=== PATIENT | female | born 1960 | race African-American/Black ===

== ENCOUNTER 2017-01-04 15:25 | Emergency (ER) | payer MEDICAID ==
[~2017-01-04] VITALS: Ht 165.1 cm; Wt 97.1 kg
[2017-01-04 17:04] LABS: CALCIUM 8.7 mg/dL (8.5-10.1); CARBON DIOXIDE 33.8 mmol/L (21-32); CHLORIDE SERUM 106 mmol/L (98-107); GFR1 > 60 mL/min; GLUCOSE SERUM 84 mg/dL (74-106); POTASSIUM SERUM 3.5 mmol/L (3.5-5.1); SODIUM SERUM 145 mmol/L (136-145)
[2017-01-04 17:05] LABS: BASOPHIL % 0.4 % (0-2); PLATELET COUNT 290 x10^3mcL (130-400); RED CELL DISTRIBUTION WIDTH 13.5 % (11.5-14.5)
[2017-01-04 17:07] LABS: MAGNESIUM 1.9 mg/dL (1.8-2.4)
[2017-01-04 17:25] LABS: CK-MB 2.6 ng/mL (0-3.6)
[2017-01-04 19:28] VITALS: BP 142/76
== END 2017-01-04 19:28 | disposition home or self-care (01) ==
LOC: ED 15:25
PROVIDERS: Emergency Medicine
DX: J45.901 Unspecified asthma with (acute) exacerbation (principal)
CPT/HCPCS: 83880; J1100; J7613; J7644; Q0092

== ENCOUNTER 2017-04-18 18:05 | Emergency (ER) | payer MEDICAID ==
[2017-04-18 18:56] LABS: BASOPHIL % 0.4 % (0-2); PLATELET COUNT 245 x10^3mcL (130-400)
[2017-04-18 18:57] LABS: RED CELL DISTRIBUTION WIDTH 14.8 % (11.5-14.5)
[2017-04-18 19:05] LABS: CALCIUM 8.9 mg/dL (8.5-10.1); CARBON DIOXIDE 32.3 mmol/L (21-32); CHLORIDE SERUM 104 mmol/L (98-107); CREATININE SERUM 0.9 mg/dL (0.6-1.0); GFR1 > 60 mL/min; GLUCOSE SERUM 78 mg/dL (74-106); POTASSIUM SERUM 3.6 mmol/L (3.5-5.1); SODIUM SERUM 144 mmol/L (136-145)
[2017-04-18 19:09] LABS: ALBUMIN 3.5 g/dL (3.4-5.0); ALKALINE PHOSPHATASE 70 U/L (46-116); ALT/SGPT 25 U/L (14-59); AST/SGOT 14 U/L (15-37); BILIRUBIN TOTAL 0.57 mg/dL (0.20-1.00); TOTAL PROTEIN, SERUM 6.6 g/dL (6.4-8.2)
[2017-04-18] MEDS ORDERED: ALBUTEROL SULFAT0.51 NEB (20:27)
[2017-04-18] MEDS ORDERED: VENTOLIN H0.09 MG/A1 INH (20:27)
[2017-04-18] MEDS ORDERED: SYMBICORT1 AE3 INH (20:27)
[2017-04-18 21:10] VITALS: BP 157/60
[2017-04-18 21:34] LABS: CHOLESTEROL/HDL RATIO 2.1; MAGNESIUM 2.1 mg/dL (1.8-2.4); PHOSPHOROUS 3.9 mg/dL (2.5-4.9)
[2017-04-18 21:38] LABS: T3 TOTAL 1.29 ng/mL
[2017-04-18 21:52] LABS: FREE T4 1.11 ng/dL (0.76-1.46); FREE THYROXINE INDEX 3.1 ug/dL (1.4-4.5); T4(THYROXINE) 8.8 ug/dL (4.7-13.3)
== END 2017-04-18 21:10 | disposition home or self-care (01) ==
LOC: ED 18:05 → DU 20:17 → ED 20:17
PROVIDERS: Emergency Medicine; Family Medicine
DX: J45.901 Unspecified asthma with (acute) exacerbation (principal); Z88.0 Allergy status to penicillin
CPT/HCPCS: 36600; 83880; 84439; 94150; J2930; J3475; J7030; J7613; J7644; Q0092